=== PATIENT | male | born 1990 | race Hispanic/Latino ===

== ENCOUNTER 2021-06-02 05:40 | Emergency (ER) | payer BC ==
[~2021-06-02] VITALS: Ht 175.3 cm; Wt 102.1 kg
[2021-06-02 05:47] VITALS: BP 149/95
[2021-06-02] MEDS ORDERED: MUPI22O TP (06:01)
[2021-06-02] MEDS ORDERED: CEPH500B PO (06:02)
== END 2021-06-02 06:06 | disposition home or self-care (01) ==
LOC: EDH 05:40
DX: L73.9 Follicular disorder, unspecified (principal); Z79.899 Other long term (current) drug therapy
CPT/HCPCS: 82948

== ENCOUNTER 2021-10-03 23:02 | Emergency (ER) | payer BC ==
[~2021-10-03] VITALS: Ht 172.7 cm; Wt 103.4 kg
[~2021-10-03 23:02] MED LIST: CEPH500B PO; MUPI22O TP
[2021-10-04 00:04] VITALS: BP 135/90
[2021-10-04 00:05] LABS: INFLUENZA TYPE A NEGATIVE FOR TYPE A (NEG); INFLUENZA TYPE B NEGATIVE FOR TYPE B (NEG)
[2021-10-04] MEDS ORDERED: ACETAMINOPHEN 500 MG TABLET PO ONE (00:30)
[2021-10-04] MEDS ORDERED: DIPH1POW20 PO (00:33)
[2021-10-04] MEDS ORDERED: NIRM1TAB PO (00:33)
[2021-10-04] MEDS ORDERED: METF-446 PO (00:33)
[2021-10-04] MEDS ORDERED: DOXY-336 PO (00:33)
[2021-10-04] MEDS ORDERED: GLIP10TA9 PO (00:33)
== END 2021-10-04 00:47 | disposition home or self-care (01) ==
LOC: EDH 23:02
DX: U07.1 COVID-19 (principal); J20.9 Acute bronchitis, unspecified; E11.9 Type 2 diabetes mellitus without complications; Z79.84 Long term (current) use of oral hypoglycemic drugs
CPT/HCPCS: 87635; 87804 ×2; 87880; 99283; C9803